=== PATIENT | female | born 1985 ===

== ENCOUNTER 2023-10-18 15:05 | Outpatient (CLI) | payer OTHER, SELFPAY ==
--- NOTE | ~2023-10-18 | CT_ITS ---
EXAMINATION: CT pelvis wo con DATE: 10/18/2023 15:32 INDICATION: Sacroiliitis, not elsewhere classified. TECHNIQUE: Computed tomography (CT) of the pelvis was performed without intravenous contrast. Automat ed exposure control and iterative reconstruction technique were employed. The dose-length product was 586.85 mGy-cm. COMPARISON: None FINDINGS: There are no pathologically enlarged lymph nodes. There is no free intraperitoneal fluid. B one alignment is normal. No fracture. There is severe osteoarthritis of the sacroiliac joints. 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 IMPRESSION: 1. Severe osteoarthritis of the sacroiliac joints. No evidence of inflammatory arthropathy. Reviewed, dictated and finalized at location A.
--- NOTE | ~2023-10-18 | CT_ITS ---
EXAMINATION: CT lumbar spine wo con DATE: 10/18/2023 15:32 INDICATION: Lumbar radiculopathy. TECHNIQUE: Computed tomography (CT) of the lumbar spine was performed without intravenous contrast. A utomated exposure control and iterative reconstruction technique were employed. The dose-length produ ct was 794.54 mGy-cm. COMPARISON: None FINDINGS: Bone alignment is normal. Vertebral body heights are normal. Intervertebral disc heights ar e normal. The following disc levels are specifically discussed: L1-L2: The disc does not extend beyond the endplate margin. There is severe right and moderate left f acet joint osteoarthritis. There is no neural foraminal stenosis. There is no central canal stenosis. L2-L3: The disc is bulging. There is severe right and moderate left facet joint osteoarthritis. There is mild bilateral neural foraminal stenosis. There is no central canal stenosis. L3-L4: The disc is bulging. There is severe right and moderate left facet joint osteoarthritis. There is mild bilateral neural foraminal stenosis. There is mild central canal stenosis. L4-L5: The disc is bulging. There is mild bilateral facet joint osteoarthritis. There is mild bilater al neural foraminal stenosis. There is mild central canal stenosis. L5-S1: The disc is bulging. There is mild right and moderate left facet joint osteoarthritis. There i s mild bilateral neural foraminal stenosis. There is mild central canal stenosis. IMPRESSION: 1. Mild lumbar spondylosis. Reviewed, dictated and finalized at location A. IMPRESSION: 1. Mild lumbar spondylosis.
== END 2023-10-18 15:06 ==
LOC: MICIMG 15:07
PROVIDERS: PCP Physical Medicine & Rehabilitation Pain Medicine; Visit Provider Physical Medicine & Rehabilitation Pain Medicine
DX: M46.1 Sacroiliitis, not elsewhere classified (principal); M53.3 Sacrococcygeal disorders, not elsewhere classified; M47.896 Other spondylosis, lumbar region
CPT/HCPCS: 72131; 72192